=== PATIENT | female | born 1960 | race Caucasian/White ===

== ENCOUNTER 2017-06-16 12:38 | Day surgery (SDC) | payer OTHER ==
[2017-06-16] MEDS ORDERED: LIDOCAINE 2% MDV (20MG/ML) 20ML VIAL IV ONE (12:39)
[2017-06-16] MEDS ORDERED: PROPOFOL 10 MG/ML VIAL IV ONE (12:39)
[2017-06-16] MEDS ORDERED: FENTANYL PF 100MCG/2ML VIAL IV ONE (12:39)
--- NOTE | 2017-06-17 12:41 | Operative Note ---
DATE OF SURGERY: 06/16/2017 OPERATION: COLONOSCOPY to the cecum. INDICATION: History of adenomatous polyps in the past. She returns at this time after 5 years for surveillance. ANESTHESIA: Intravenous sedation was administered by the department of anesthesiology and included Diprivan titrated to effect. PROCEDURE: Following informed consent from this alert individual including a discussion of the risks and benefits of the procedure and an opportunity for the patient to ask questions, the patient was in the left lateral decubitus position. A digital rectal examination was performed. No abnormalities were noted. Following this, the Olympus [id number] video colonoscope was inserted into the rectum without resistance. The rectal mucosa had a normal appearance with normal folds and distensibility. The colonoscope was advanced up through the colon to the level of the cecum without much difficulty. Throughout the bowel the mucosa appeared normal, the folds were normal, and the bowel was fairly well distensible. The cecum was defined by noting the appendiceal orifice and ileocecal valve. Retroflexion in the cecum was endoscopically unremarkable. From the base of the cecum, the colonoscope was then withdrawn. No abnormalities were noted. Retroflexion in the rectum was endoscopically unremarkable. The endoscope was straightened and removed. The patient tolerated the procedure well and was returned to the recovery area in stable condition. IMPRESSION: Unremarkable colonoscopy to the cecum. RECOMMENDATIONS: The patient was advised to have a recheck surveillance colonoscopy in 5 years' time or sooner if problems arise. Followup will otherwise be with Dr. Xavi Saunders. As always, thank you for allowing me to participate in the care of your patient. CC: Dr. Nicky DOUGLAS
--- NOTE | 2017-06-17 12:41 | Operative Note ---
DATE OF SURGERY: 06/16/2017 OPERATION: ESOPHAGOGASTRODUODENOSCOPY with biopsy. INDICATION: Worsening pyrosis. The patient had previous endoscopy approximately 5 years ago. 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 However, biopsies proved to be negative for intestinal metaplasia. She does feel as though acid blockade tends to help but at times she needs to take it twice daily, as her pyrosis is worsening. ANESTHESIA: Intravenous sedation was administered by the department of anesthesiology and included Diprivan titrated to effect. PROCEDURE: Following informed consent from this alert individual, including a discussion of the risks and benefits of the procedure and an opportunity for the patient to ask questions, the patient was in the left lateral decubitus position. The Olympus [id number] video endoscope was inserted into the posterior pharynx and esophagus without resistance. The posterior pharynx and vocal cords appeared to be normal. The esophagus proximally was endoscopically unremarkable. The mid esophagus likewise was free from changes. The distal esophageal segment demonstrated some slight irregularity to the squamocolumnar junction and suggestion of a small sliding-type hiatal hernia measuring at most 1.5 cm in length. Biopsies from the GE junction were obtained to again rule out Sandoval's epithelium. The stomach was then entered and found to be unremarkable except for a small submucosal nodule in the gastric antrum near the angulus on the anterior wall. This was biopsied. The pylorus itself was symmetrical and patent. The duodenal bulb, sweep, and descending duodenum were then examined in a serial fashion and found to be normal. The endoscope was then drawn back into the body of the stomach. Retroflexion accomplished following air insufflation failed to demonstrate any changes. The endoscope was then straightened and withdrawn back through the stomach and esophagus. No additional changes were appreciated. The instrument was removed. The patient tolerated the procedure well and was returned to the recovery area in stable condition. IMPRESSION: 1. Slight irregularity of the squamocolumnar junction, biopsies taken. 2. Small hiatal hernia. 3. Small 6-7 mm submucosal nodule in the gastric antrum, biopsies as described above. RECOMMENDATION: The patient will continue with acid blockade therapy. Further recommendations may be forthcoming pending results of biopsy obtained today. Followup will also be with Dr. Xavi Saunders. As always, thank you for allowing me to participate in the care of your patient. CC: Dr. Nicky DOUGLAS
== END 2017-06-16 15:03 | disposition home or self-care (01) ==
LOC: HOP 12:38
PROVIDERS: ATTEND Internal Medicine Gastroenterology
DX: Z12.11 Encounter for screening for malignant neoplasm of colon (principal); K21.9 Gastro-esophageal reflux disease without esophagitis; K31.89 Other diseases of stomach and duodenum; K44.9 Diaphragmatic hernia without obstruction or gangrene; E78.00 Pure hypercholesterolemia, unspecified; F41.8 Other specified anxiety disorders
CPT/HCPCS: 00810; 43235; G0105

== ENCOUNTER 2017-07-14 10:07 | Emergency (ER) | payer OTHER ==
[2017-07-14] MEDS ORDERED: ACETAMINOPHEN 325 MG TAB PO ONE (10:36)
[2017-07-14] MEDS ORDERED: ONDANSETRON 4 MG ODT TABLET SL ONE (10:45)
--- NOTE | 2017-07-14 10:45 | Emergency Department Record ---
History of Present Illness - General Chief Complaint: Fall Injury Stated Complaint: FALL/HIT HEAD Time Seen by Provider: 07/14/17 10:28 Source: Patient Mode of Arrival: Ambulatory Limitations: No limitations - History of Present Illness Initial Comments: The patient is here due to falling and bumping her head 3 days ago. Since she has had a persistent ERVIN and nausea. There was no reported LOC and since she has been active with no balance issues. She did call her PCP today who told her to go to the ER for a head CT. The patient did drive here with no difficulty. 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 Fall Witnessed: Yes, by family Place Fall Occurred: Home Loss of Consciousness: Unsure Symptoms Prior to Fall: None Location: Head Severity scale (1-10): 4 Quality: Aching Context: Tripped/slipped Associated Symptoms: Headache - Related Data Home Medications Medication Instructions Recorded Confirmed Last Taken Buspirone HCl [Buspar] 7.5 mg PO DAILY 07/14/17 07/14/17 Unknown Fenofibrate [Fenofibrate] 150 mg PO DAILY 07/14/17 07/14/17 Unknown Previous Rx's Medication Instructions Recorded Doxycycline Monohydrate [Mondoxyne 100 mg PO BID #20 capsule 07/14/17 Nl] Ondansetron [Zofran Odt] 4 mg SL .Q4-6H PRN #12 tab.rapdis 07/14/17 Allergies Allergy/AdvReac Type Severity Reaction Status Date / Time No Known Drug Allergies Allergy Verified 03/23/16 15:49 Travel Screening - Travel/Exposure Within Last 30 Days Have you traveled within the last 30 days?: No Review of Systems Constitutional: Denies: Chills, Fever Eyes: Denies: Eye discharge ENT: Denies: Congestion Respiratory: Denies: Cough, Dyspnea Past Medical History - SOCIAL HISTORY Smoking Status: Former smoker Alcohol Use: None Drug Use: None - RESPIRATORY Hx Respiratory Disorders: No - CARDIOVASCULAR Hx Cardio Disorders: Yes Comment:: high cholesterol - NEURO Hx Neuro Disorders: No - GI Hx GI Disorders: Yes Hx Reflux: Yes Comment:: barretts esophagus - Hx Genitourinary Disorders: No - ENDOCRINE Hx Endocrine Disorders: Yes Hx Diabetes: Yes (not currently on medications) - MUSCULOSKELETAL Hx Musculoskeletal Disorders: No - PSYCH Hx Psych Problems: Yes Hx Anxiety: Yes Hx Depression: Yes - HEMATOLOGY/ONCOLOGY Hx Hematology/Oncology Disorders: No Family Medical History Any Significant Family History?: No Physical Exam - General General Appearance: Alert, Oriented x3, Cooperative, No acute distress - Head Head exam: Atraumatic, Normocephalic, Normal inspection - Eye Eye exam: Normal appearance, PERRL, EOMI - ENT ENT exam: Normal exam, Mucous membranes moist, Normal external ear exam, Normal orophraynx, TM's normal bilaterally - Neck Neck exam: Normal inspection, Full ROM. negative: Tenderness (There is no midline cspine tenderness.) - Respiratory Respiratory exam: Normal lung sounds bilaterally. negative: Respiratory distress - Cardiovascular Cardiovascular Exam: Regular rate, Normal rhythm, Normal heart sounds - GI/Abdominal GI/Abdominal exam: Soft, Normal bowel sounds. negative: Tenderness - Extremities Extremities exam: Normal inspection, Full ROM, Normal capillary refill. negative: Tenderness - Neurological Neurological exam: Alert, Normal gait, Oriented X3, Other (Neg Drift and Rhomberg.). negative: Abnormal gait, Altered, Motor sensory deficit Course Vital Signs 07/14/17 10:19 Temperature 98.6 F Pulse Rate 88 Respiratory 18 Rate Blood Pressure 145/89 Pulse Ox 95 - Reevaluation(s) Reevaluation #1: The patient is doing very well. I did explain to her that the CT scan does not demonstrate any intracranial abnormality but does show sinusitis. We will discharge the patient with F/U with her PCP this week. 07/14/17 11:21 Medical Decision Making - Data Complexity MDM Data: X-Ray Ordered and/or Reviewed (Head CT: R maxillary sinusitis O/W neg.) Disposition Disposition: Discharge Clinical Impression: Concussion Qualifiers: Encounter type: initial encounter Loss of consciousness presence/duration: without LOC Qualified Code(s): S06.0X0A - Concussion without loss of consciousness, initial encounter Sinusitis Qualifiers: Sinusitis location: unspecified location Chronicity: acute Recurrence: non- recurrent Qualified Code(s): J01.90 - Acute sinusitis, unspecified Disposition: Home, Self-Care Condition: (2) Stable Instructions: Post Concussion Syndrome (ED) Additional Instructions: Please take Tylenol or Motrin for pain and use the Zofran for nausea. Take the Doxycycline as directed. Please see your PCP later this week for recheck. Return to the ER for any increased pain, fever, worsening headache or confusion. Prescriptions: Doxycycline Monohydrate [Mondoxyne Nl] 100 mg PO BID #20 capsule Ondansetron [Zofran Odt] 4 mg SL .Q4-6H PRN #12 tab.rapdis PRN Reason: Nausea Forms: Patient Portal Access Time of Disposition: 11:24 Quality - Quality Measures Quality Measures: N/A - Blood Pressure Screening View Details: Yes Does Patient Have Any of the Following: No Blood Pressure Classification: Hypertensive Reading Systolic Measurement: 150 Diastolic Measurement: 102 Screening for High Blood Pressure: < Pre-Hypertensive BP, F/U Documented > [ [id number]] Pre-Hypertensive Follow-up Interventions: Referral to alternative/primary care provider.
--- NOTE | 2017-07-14 12:30 | CT SCAN REPORT ---
EXAM: CT OF THE BRAIN WITHOUT CONTRAST HISTORY: INJURY. TECHNIQUE: Sequential axial images were obtained from the foramen magnum to the vertex without contrast administration. FINDINGS: The brain volume is normal. No large territorial infarct, hemorrhage , mass effect or midline shift. No extraaxial fluid collection. The orbits appear normal. There is deviation of the nasal septum rightward. There is complete opacification of the right maxillary sinus. IMPRESSION: COMPLETE OPACIFICATION OF THE RIGHT MAXILLARY SINUS WITH DEVIATION OF THE NASAL SEPTUM RIGHTWARD. NO INTRACRANIAL ABNORMALITY IS APPRECIATED. JOB NUMBER: [id number] [facility]
== END 2017-07-14 11:41 | disposition home or self-care (01) ==
LOC: ER 10:07
DX: S06.0X0A Concussion without loss of consciousness, initial encounter (principal); J01.90 Acute sinusitis, unspecified; R51 Headache; R11.0 Nausea; W01.0XXA Fall on same level from slipping, tripping and stumbling without subsequent striking against object, initial encounter; Y92.009 Unspecified place in unspecified non-institutional (private) residence as the place of occurrence of the external cause
CPT/HCPCS: 70450; 99283; 99284